=== PATIENT | male | born 1985 | race Caucasian/White ===

== ENCOUNTER 2023-02-03 13:34 | Emergency (ER) | payer SELFPAY ==
--- OUTSIDE RECORDS SUMMARY | 2023-02-03 13:38 | XMS REPORT | Continuity of Care Document ---
:1985 Author Organization [facility] t Address [address] [place] [address] Care Team Providers Name Role Phone PCP, PATIENT DOES NOT HAVE A Primary Care Physician UnavailGLORIA Carroll Attending Clinician Unavailable Gloria Mcmahon MD Attending Clinician Doctor Unassigned, [place] Attending Clinician Unavailable Ana Rosa Babin MD Attending Clinician KLARISSA BLOOM Attending Clinician Unavailable JAMES SCHUMACHER Attending Clinician Unavailable EPIFANIO WILLOUGHBY Attending Clinician Unavailable MD EDISON DHALIWAL Attending Clinician Unavailable ANA ROSA BABIN Admitting Clinician Unavailable Ana Rosa Babin MD Admitting Clinician EDISON DHALIWAL Admitting Clinician Unavailable MD EDISON DHALIWAL Admitting Clinician Unavailable Payers Payer Name Policy Type Policy Number Effective Date Expiration Date [facility] [employer] [id number] 2022 HEALTH 00:00:00 Problems Condition Condition Condition Status Onset Resolution Last Treating Co mments Source Name Details Category Date Date Treatment Clinician Date Cellulitis Cellulitis Disease Active M ethodi of right of right 8-[facility] st index index 00:00: Hospita finger finger 00 l No known No known Disease Unive rs active active ity of problems problems [facility] Allergies, Adverse Reactions, Alerts Allergy Allergy Status Severity Reaction(s) Onset Inactive Treating Comm ents Source Name Type Date Date Clinician NO KNOWN Drug Active Univers ALLERGIE Class ity of S [facility] Social History Social Habit Start Date Stop Date Quantity Comments Source Gender identity [facility] History of tobacco Smokes tobacco [facility] use daily Hospital History of Social 2023-01-06 2023-01-[address] function 00:00:00 00:00:00 Hospital Exposure to 2022-03-31 2022-04-10 Not sure University of SARS-CoV-2 (event) 00:00:00 13:46:00 [facility] Tobacco use and 2022-04-10 2022-04-10 Never used Universit y of exposure 00:00:00 00:00:00 [facility] Alcohol intake 2022-01-26 2022-01-26 Current drinker [facility] 00:00:00 00:00:00 of alcohol Hospital (finding) Tobacco Comment 2020-05-30 2020-05-30 1 pack of week [facility] 00:00:00 00:00:00 Hospital Sex Assigned At [birth year] [facility] 00:00:00 00:00[facility]00 Hospital Smoking Status Start Date Stop Date Source Former smoker 2022-04-10 00:00:00 2022-04-10 00:00:00 [facility] Smokes tobacco daily 2020-05-30 00:00:00 [facility] Medications Ordered Filled Start Stop Current Ordering Indication Dosage Frequency Signature Comments Components Source Medication Medication Date Date Medication? Clinician (SIG) Name Name No known No Univers medications 08 ity of 14:00: [address] naproxen 500mg Q.5D Take 1 Metho di (NAPROSYN) 4-25 05-[address] 500 MG 00:00: 04:59 (500 mg Hospita tablet 00 :00 total) by l mouth 2 (two) times a day with meals for 14 days. Immunizations Ordered Immunization Filled Immunization Date Status Commen ts Source Name Name Tdap 2022-01-26 Completed [facility] 00:[facility]:00 [facility] Tdap 2020-05-31 Completed [facility] 00:[facility]:00 [facility] Vital Signs Vital Name Observation Time Observation Value Comments Source Systolic blood 2022-04-10 19:00:00 122 mm[Hg] Univer sity of pressure [facility] Diastolic blood 2022-04-10 19:00:00 79 mm[Hg] Unive rsity of pressure [facility] Heart rate 2022-04-10 19:00:00 68 /min [facility] Body temperature 2022-04-10 19:00:00 [facility]67 [facility] height 2022-04-10 19:00:00 172.7 cm [facility] Body weight 2022-04-10 19:00:00 68.539 kg [facility] BMI 2022-04-10 19:00:00 22.97 kg/m2 [facility] Procedures This patient has no known procedures. Plan of Care Planned Activity Planned Date Details Comments Source Future Scheduled 2023-02-03 COVID-19 VACCINE (#1) [facility] Test 13:37:26 [code = COVID-19 VACCINE (#1)] Future Scheduled 2023-02-03 Pneumococcal Vaccine: [facility] Test 13:37:26 Pediatrics (0 to 5 Years) and At-Risk Patients (6 to 64 Years) (1 - PCV) [code = Pneumococcal Vaccine: Pediatrics (0 to 5 Years) and At-Risk Patients (6 to 64 Years) (1 - PCV)] Future Scheduled 2023-02-03 Hepatitis C screening [facility] Test 13:37:26 (procedure) [code = 722185671] Future Scheduled 2023-02-03 INFLUENZA VACCINE [facility] Test 13:37:26 [code = INFLUENZA VACCINE] Encounters Start End Encounter Admission Attending Care Care Encounter Source Date/Time Date/Time Type Type Clinicians Facility Department ID 2022-05-12 2022-05-12 Outpatient GLORIA GERARD [facility] [id number] [facility] 14:10[facility]00 [facility] 2022-04-10 2022-04-10 Outpatient R GLORIA MCMAHON [facility] [id number] [facility] 14:00:00 14[facility]26:[facility] 2022-04-10 2022-04-10 Office Gloria Mcmahon [facility] [id number] [facility] 14:00:00 14:10:00 Visit SPECIALTY [id number] ity of CARE [id number] [facility] AT [phone] [address] 2022-04-10 2022-04-10 Outpatient R GLORIA MCMAHON [facility] [id number] Univers 14:00:00 14:00:00 ity of [facility] 2022-04-10 2022-04-10 Orders Doctor ANA ROSA [id number] Univers 00:00:00 00:00:00 Only Unassigned, SIMONA [id number] ity of [place] [facility] [id number] [place] as [id number] [facility] [address] 2022-03-26 2022-03-27 Emergency X [facility] ERT [id number] Univers 21:47:00 00:56:00 ity of [facility] 2022-03-26 2022-03-27 Emergency Faillace, TRAUMA [id number] Univers 21:47:00 00:56:00 Ana Rosa [place] [id number] [id number] [id number] [facility] [address] 2022-01-26 2022-01-26 Emergency MERLE, [facility] 064 [id number] [place] 00:00:00 00:00:00 KLARISSA 037 Method i 2020-07-04 2020-07-04 Outpatient SCHUMACHER, [facility] [id number] [place] 00:00:00 00:00:00 JAMES 527 Method i 2020-07-03 2020-07-03 Outpatient SCHUMACHER, [facility] [id number] [place] 00:00:00 00:00:00 JAMES 112 Method i 2020-06-12 2020-06-12 Outpatient SCHUMACHER, [facility] [id number] 585 [place] 00:00:00 00:00:00 JAMES [address] 2020-05-29 2020-06-03 Inpatient BARTRA, [facility] 064 [id number] [place] 00:00:00 00:00:00 EPIFANIO [address] Results Test Description Test Time Test Comments Results Result Comments Source SARS-CoV-2 (COVID-19) RNA [Presence] in Respiratory sp ecimen by 2020-05-30 00:20:23 DEBBIE with probe detection Test Item Value Reference Range Interpretation Comme nts SARS-CoV-2 (COVID-19) RNA [Presence] in Respiratory Not detected No t-Detected specimen by DEBBIE with probe detection (test code = 42076-5) [facility]
[2023-02-03] MEDS ORDERED: ACETAMINOPHEN 500 MG TAB ONE (14:23)
[2023-02-03] MEDS ORDERED: LIDOCAINE 1% 20 ML MDV ONE (14:28)
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
[2023-02-03 16:01] VITALS: TEMP 97.3
[2023-02-03 16:03] VITALS: BP 132/88; O2SAT 97
== END 2023-02-03 15:57 | disposition home or self-care (01) ==
LOC: ER 13:34
PROC: 0HQFXZZ Repair Right Hand Skin, External Approach (ICD-10-PCS; principal; 2023-02-03)
DX: S61.411A Laceration without foreign body of right hand, initial encounter (principal)
CPT/HCPCS: 99284; J2001